=== PATIENT | male | born 1990 | race Caucasian/White ===

== ENCOUNTER 2019-06-09 06:46 | Day surgery (SDC) | payer OTHER ==
[~2019-06-09] VITALS: Ht 175.3 cm; Wt 123.4 kg
[~2019-06-09 06:46] MED LIST: AMPICILLIN SOD/SULBACTAM SOD 3 GM in D5W MINI-BAG PLUS 100 ML IV ONE; IBUP-1114 PO; LR 1,000 ML IV ONE; dexameTHASONE 4 MG/ML 1ML VIAL (J1100) IV ONE
[2019-06-09] MEDS ORDERED: ROCURONIUM BROMIDE 50 MG/5 ML VIAL As Ordered ONE (07:58)
[2019-06-09] MEDS ORDERED: LIDOCAINE 2% INJ 100 MG/5 ML SDV (FOR ANES.) As Ordered ONE (07:58)
[2019-06-09] MEDS ORDERED: MIDAZOLAM INJ 2 MG/2 ML VIAL (J2250) As Ordered ONE (07:58)
[2019-06-09] MEDS ORDERED: PROPOFOL 200 MG/20 ML VIAL As Ordered ONE (07:58)
[2019-06-09] MEDS ORDERED: fentaNYL 250 MCG/5 ML INJECTION (J3010) As Ordered ONE (07:58)
[2019-06-09] MEDS ORDERED: LIDOCAINE 2% JELLY 30 ML As Ordered ONE (08:08)
[2019-06-09] MEDS ORDERED: CHLORHEXIDINE GLUCONATE 0.12 % 15ML UDC (PERIDEX ORAL RINSE) As Ordered ONE (08:08)
[2019-06-09] MEDS ORDERED: LIDOCAINE 2% W/ EPINEPHRINE 1.7 ML DENTAL INJ As Ordered ONE (08:09)
[2019-06-09] MEDS ORDERED: PHENYLEPHRINE 0.5% NASAL SPRAY 15 ML As Ordered ONE (08:13)
[2019-06-09] MEDS ORDERED: ONDANSETRON 4MG/2ML VIAL (J2405) As Ordered ONE (08:45)
[2019-06-09] MEDS ORDERED: SUCCINYLCHOLINE 100 MG/5 ML SYRINGE (J0330) As Ordered ONE (08:56)
[2019-06-09] MEDS ORDERED: SUGAMMADEX SODIUM 500 MG/5 ML VIAL (BRIDION) As Ordered ONE (08:56)
[2019-06-09] MEDS ORDERED: PHENYLephrine HCL 500 MCG/5 ML (100MCG/ML) SYRINGE (J2370) As Ordered ONE (09:47)
[2019-06-09] MEDS ORDERED: fentaNYL 100 MCG/2 ML INJECTION (J3010) As Ordered ONE (10:32)
[2019-06-09] MEDS: fentaNYL 100 MCG/2 ML INJECTION (J3010) IV PRN ×2 (10:33→10:38)
[2019-06-09] MEDS ORDERED: PERCOCET 5MG/325MG TAB As Ordered ONE (10:59)
[2019-06-09] MEDS ORDERED: METOCLOPRAMIDE INJ 10MG/2ML VIAL (J2765) IV PRN (11:15)
[2019-06-09] MEDS ORDERED: ONDANSETRON 4MG/2ML VIAL (J2405) IV PRN (11:15)
[2019-06-09] MEDS ORDERED: LR 1,000 ML IV SCH (11:15)
[2019-06-09] MEDS ORDERED: PERCOCET 5MG/325MG TAB PO PRN (11:15)
[2019-06-09 12:07] VITALS: BP 142/92
--- NOTE | 2019-06-15 14:28 | RO ---
DATE OF PROCEDURE: 06/09/2019 PREOPERATIVE DIAGNOSIS: Terminal and hopeless remaining dentition. POSTOPERATIVE DIAGNOSIS: Status post the above plus bony cyst apical site of tooth #11. PROCEDURE PERFORMED: Extraction of all the remaining teeth and enucleation of bony cyst apical to extraction site #11. SURGEON: Remi Munoz DMD SYSTEMS ANALYST: None. ANESTHESIA: General endotracheal anesthesia via nasal EDIE. SPECIMEN: All the teeth for gross only, plus bony cystic lesion for permanent. INDICATIONS: Mr. Bautista is a pleasant 29-year-old male who was referred to me by his dentist for evaluation for extraction of all of his remaining teeth. The patient reports daily pain and sensitivity from all of his teeth plus he also reports swelling in his upper left anterior vestibule around canine tooth #11. He has been on and off on penicillin for the past few weeks and he does take [id number] pain killers such as Tylenol and Motrin. Clinical examination reveals heavily restored dentition with crowns on teeth 6, 7, 8, 9, 10, 11, 12, and 19, as well as, gross caries teeth 3, 4, 13, 14, 17, 27, 28, 29, and 31. I gave the patient his options to have all the teeth removed and in an operating room setting under general anesthesia versus IV sedation in an office setting. However, he does have a fairly difficult airway with a Mallampati IV and a short fat neck. Therefore, deep sedation in the office would be contraindicated. I have explained this to the patient and he elects to have the procedure done under general anesthesia due to severe dental anxiety. All the risks, benefits and alternatives were explained to the patient. A complete history and physical was performed and is in the patient's chart. History and physical as I mentioned was completed and informed consent is in the chart. DESCRIPTION OF PROCEDURE: The patient was taken back to the operating room. He was laid supine on the operating room table. Ulnar nerve protectors were placed. Noninvasive cardiac monitors were applied. At that point, the patient underwent general anesthesia and was intubated with a nasal EDIE. He was prepped and draped in the usual sterile fashion. A time out procedure was performed to identify the patient, the procedure and any other precautions. Preoperative antibiotics and steroids were administered. At this point, a moist throat pack was inserted in the patient's oropharynx followed by the administration of multiple carpules of 2% lidocaine with 1:100,000 epinephrine as local infiltrations and blocks. At this point, a full-thickness flap was released from the distal of tooth #3 into the sulcus of tooth number #3, #4, edentulous area of #5 and into the sulcus of teeth 6, 7, 8, 9, 10, 11, 12, 13, 14 and extending about half an inch distal facially of where #14 is. The flap was fully reflected. A small amount of buccal bone was removed from sites 3, 4, 6, 7, 8, 9, 10, 11, 12, 13 and 14. At this point, the teeth were luxated and delivered, some in their entirety, some came out in different fragments due to gross caries; however, all the teeth were removed. Namely; 3, 4, 6, 7, 8, 9, 10, 11, 12, 13, and 14. Once the teeth were removed, all the sockets were inspected and curetted. Socket number 11 was noted to have a large cystic-like lesion at the apex of tooth #11 that extended into the apex of tooth #10. The bony cystic lesion was enucleated in total. It was placed in formalin and sent to my oral bag shop worker colleagues for histopathology review. The residual defect was copiously irrigated and healthy bleeding bone was noted. Cautery was then used to achieve hemostasis in the residual bony defect and two Gelfoam was placed into the defect. An alveoloplasty was performed in the upper left and upper right quadrants to remove any sharp bony undercuts and sharp interradicular bone. At this point, once this was performed and copious irrigation was performed, the flap was closed with interrupted #3-0 chromic sutures. At this point, attention was then given to the mandibular arch where a full-thickness flap was released through teeth number 17, 19, 20, 21 and 22. A small amount of buccal bone was removed from those teeth areas. The teeth were luxated and delivered in their entirety. A small alveoloplasty was performed. The sockets were curetted and irrigated. The flaps were closed with #3-0 chromics. Attention was then given the teeth number 23, 24, 25, and 26 which were routinely removed with forceps in a simple routine fashion and a full-thickness flap was then released in sites 27, 28 and 29 into the edentulous area of 30 and into the tooth sulcus of tooth 31 with a distal release. A small amount of buccal bone was removed from 27, 28, 29, and 31. The teeth were then luxated and delivered. All the sockets were curetted and irrigated. Alveoloplasty was performed to remove any sharp bony undercuts and sharp bony interradicular areas. Copious irrigation. The flap was closed with 3-0 chromics. At this point, once all the teeth were removed, gauze hemostasis was achieved and observed for over 10 minutes. The oral cavity was irrigated and suctioned. The throat pack was removed. The patient was awakened from general anesthesia and taken back to the postanesthesia care unit (PACU. COMPLICATIONS: None to mention at time of surgery. ESTIMATED BLOOD LOSS: About 100 mL. DRAINS: There were no drains placed.
== END 2019-06-09 12:20 | disposition home or self-care (01) ==
LOC: M SDC 06:46
PROVIDERS: ATTEND Dentist
DX: K04.8 Radicular cyst (principal); K02.9 Dental caries, unspecified; F41.9 Anxiety disorder, unspecified; E66.01 Morbid (severe) obesity due to excess calories; Z68.36 Body mass index [BMI] 36.0-36.9, adult; R51 Headache; F17.210 Nicotine dependence, cigarettes, uncomplicated
CPT/HCPCS: 88300; 88305; D7210; D7310; D7311; D7411; D9223; J0330; J1100; J2250; J2370; J2405; J3010

== ENCOUNTER → 2019-08-28 | Outpatient (CLI) | payer OTHER ==
[~2019-08-28] MED LIST changes: -AMPICILLIN SOD/SULBACTAM SOD 3 GM in D5W MINI-BAG PLUS 100 ML IV ONE; -LR 1,000 ML IV ONE; -dexameTHASONE 4 MG/ML 1ML VIAL (J1100) IV ONE
--- NOTE | 2019-08-29 08:16 | REP ---
Clinical: Palpable neck mass. Technique: Real time conklin scale and color evaluation using linear high frequency transducer. Findings: Directed ultrasound examination of the neck at the region of palpable mass(es) demonstrates relatively normal appearing lymph nodes measuring 2.2 x 1.0 x 0.6 cm on the right and 1.7 x 0.7 x 1.6 cm on the left. Incidental right thyroid nodule measures approximately 13 x 6 x 8 mm along with 3 mm calcification in the right thyroid lobe adjacent to the isthmus. Impression: 1. Previously noted palpable masses likely represent relatively normal appearing lymph nodes bilaterally. 2. Incidental thyroid nodule and calcification. Electronically Signed by Hermilo Guerin MD 08/29/2019 08:07 A
== END ==
LOC: M LRY 13:47
PROVIDERS: ATTEND Nurse Practitioner Family
DX: R22.1 Localized swelling, mass and lump, neck (principal)

== ENCOUNTER → 2021-05-26 | Outpatient (CLI) | payer OTHER ==
--- NOTE | 2021-05-26 19:29 | REPVR ---
PROCEDURE INFORMATION: Exam: CT Temporal Bones Without Contrast. Exam date and time: 05/26/2021 10:40 AM Age: 30 years old Clinical indication: Pain; Other: Ear; Additional info: Recurrent lt otorrhea TECHNIQUE: Imaging protocol: Computed tomography images of the temporal bones without contrast. Radiation optimization: All CT scans at this facility use at least one of these dose optimization techniques: automated exposure control; mA and/or kV adjustment per patient size (includes targeted exams where dose is matched to clinical indication); or iterative reconstruction. COMPARISON: No relevant prior studies available. FINDINGS: Right inner ear: Normal. Right ossicles and middle ear: Normal. The middle ear ossicles are intact. Right external auditory canal: Normal. Right facial nerve canal: Normal. Right jugular foramen: No jugular dehiscence. Right carotid canal: No aberrant carotid canal. Right mastoid air cells: Normal. No mastoid effusions. Left inner ear: Normal. Left ossicles and middle ear: Partial opacification of the left middle ear cavity. Left tegmen tympani is intact. No osseous erosive changes in the left temporal bone. Left inner ear ossicles are intact. Left external auditory canal: Normal. Left facial nerve canal: Normal. Left jugular foramen: No jugular dehiscence. Left carotid canal: No aberrant carotid canal. Left mastoid air cells: Near complete opacification of left mastoid air cells. Soft tissues: Unremarkable. IMPRESSION: Findings concerning for left-sided otomastoiditis. Electronically signed by: Dave Nicholson On 05/26/2021 19:29:13 PM
== END ==
LOC: M PLAIMG 10:25
PROVIDERS: ATTEND Physician Assistant Medical
DX: H72.02 Central perforation of tympanic membrane, left ear (principal)

== ENCOUNTER 2021-06-04 07:21 | Day surgery (SDC) | payer OTHER ==
[~2021-06-04] VITALS: Ht 175.3 cm; Wt 124.9 kg
[~2021-06-04 07:21] MED LIST changes: +LR 1,000 ML IV ONE
[2021-06-04] MEDS ORDERED: propofoL 200 MG/20 ML VIAL As Ordered ONE ×2 (08:05→09:23)
[2021-06-04] MEDS ORDERED: fentaNYL 100 MCG/2 ML INJECTION As Ordered ONE (08:05)
[2021-06-04] MEDS ORDERED: ONDANSETRON 4MG/2ML VIAL As Ordered ONE (08:05)
[2021-06-04] MEDS ORDERED: MIDAZOLAM INJ 2MG/2ML VIAL (J2250 PER 1MG) As Ordered ONE (08:05)
[2021-06-04] MEDS ORDERED: LIDOCAINE 2% 100MG/5ML SDV (FOR ANES.) As Ordered ONE (08:05)
[2021-06-04] MEDS ORDERED: dexameTHASONE 4 MG/ML 1ML VIAL (J1100 PER 1MG) As Ordered ONE (08:05)
[2021-06-04] MEDS ORDERED: PHENYLEPHRINE 0.5% NASAL SPRAY 15 ML As Ordered ONE (08:52)
[2021-06-04] MEDS ORDERED: CIPRODEX OTIC SUSP 7.5ML As Ordered ONE (08:52)
[2021-06-04] MEDS ORDERED: ACETAMINOPHEN 1000MG 100ML IV BTL (OFIRMEV) (J0131 PER 10MG) As Ordered ONE (09:19)
[2021-06-04] MEDS ORDERED: OXYMETAZOLINE 0.05% NASAL SPRAY (AFRIN) As Ordered ONE (09:20)
[2021-06-04] MEDS ORDERED: fentaNYL 100 MCG/2 ML INJECTION IV PRN (10:15)
[2021-06-04] MEDS ORDERED: oxyCODONE 5MG TAB PO PRN (10:15)
[2021-06-04] MEDS ORDERED: ONDANSETRON 4MG/2ML VIAL IV PRN (10:15)
[2021-06-04] MEDS ORDERED: LR 1,000 ML IV SCH ×2 (10:15)
[2021-06-04 10:25] VITALS: BP 120/70
== END 2021-06-04 10:40 | disposition home or self-care (01) ==
LOC: M SDC 07:21
PROVIDERS: ATTEND Otolaryngology
DX: H69.82 Other specified disorders of Eustachian tube, left ear (principal); G43.909 Migraine, unspecified, not intractable, without status migrainosus; K21.9 Gastro-esophageal reflux disease without esophagitis; F17.218 Nicotine dependence, cigarettes, with other nicotine-induced disorders
CPT/HCPCS: 69436; J0131; J1100; J2250; J2405; J3010; U0002